=== PATIENT | female | born 1995 | race Caucasian/White ===

== ENCOUNTER 2019-05-16 06:56 | Outpatient (CLI) | payer BC, SELFPAY ==
[2019-05-20 13:32] LABS: Adrenocorticotropic Hormone 9 pg/mL (6-50)
== END 2019-05-16 06:57 | disposition home or self-care (01) ==
PROVIDERS: PCP Family Medicine; Visit Provider Internal Medicine Endocrinology, Diabetes & Metabolism
DX: R68.89 Other general symptoms and signs (principal); R63.4 Abnormal weight loss; R53.83 Other fatigue
CPT/HCPCS: 36415; 82024; 82533; 96372; J0834

== ENCOUNTER 2020-01-08 08:56 | Outpatient (CLI) | payer BC, SELFPAY ==
--- NOTE | ~2020-01-08 | PE_ITS ---
EXAMINATION: PET skull to mid thigh DATE: 01/08/2020 10:51 INDICATION: Enlarged lymph nodes. Weight loss. TECHNIQUE: Blood glucose level was 79 mg/dL. 10.147 mCi of 18-fluorodeoxyglucose (18-FDG) was adminis tered i.v. Low dose computed tomography (CT) images were acquired from the base of the brain to the p roximal thighs for attenuation correction and anatomic localization. Positron emission tomography (PE T) images were acquired in the same distribution beginning 74 minutes after injection. Images includi ng fused PET/CT images were reconstructed in axial, coronal, and sagittal planes. Automated exposure control technique was employed. The dose-length product was 222 mGy-cm. COMPARISON: CT chest abdomen and pelvis dated 04/03/2019 FINDINGS: Head/neck: There is symmetric increased activity in the oral cavity, palatine tonsils, parotid glands, submandi bular glands, laryngeal muscles and ocular muscles without CT correlate, likely physiologic. No patho logically enlarged cervical lymphadenopathy or suspicious foci of increased FDG uptake in the visuali zed head or neck. Chest: Lungs are clear. No pleural effusion. Heart size is normal with no pericardial effusion. Again seen i s a triangular region of mixed fat and soft tissue density in the anterior mediastinum consistent wit h normal residual thymic tissue. No pathologically enlarged or FDG avid thoracic lymphadenopathy. Abdomen/pelvis/proximal thighs: Physiologic renal accumulation and excretion of FDG activity in the kidneys, bladder and along portio ns of ureters. Normal degree and heterogenous pattern of increased uptake throughout the liver withou t radiologic correlate or dominant FDG avid lesion. The gallbladder, pancreas, spleen and bilateral a drenal glands are normal. Mild uptake scattered throughout the bowels without radiologic correlate, a lso likely physiologic. Uterus and bilateral adnexa are unremarkable. No other abnormal foci of incre ased FDG uptake or pathologically enlarged lymphadenopathy in the abdomen, pelvis or proximal thighs. Musculoskeletal: Bones are normal with no suspicious lytic, blastic or FDG avid bone lesions. IMPRESSION: 1. Normal study. No pathologically enlarged or FDG avid lymphadenopathy. Reviewed, dictated and finalized at location B.
[2020-01-08 09:22] LABS: Glucose Point of Care 79 (65-105)
== END 2020-01-08 08:57 | disposition home or self-care (01) ==
LOC: ANHIMG 09:07
PROVIDERS: PCP Family Medicine; Visit Provider Family Medicine
DX: R63.4 Abnormal weight loss (principal); R59.1 Generalized enlarged lymph nodes
CPT/HCPCS: 78815; A9552